=== PATIENT | female | born 1940 | race African-American/Black ===

== ENCOUNTER 2020-06-15 14:03 | Emergency (ER) | payer OTHER ==
[~2020-06-15] VITALS: Ht 162.6 cm; Wt 45.0 kg
[2020-06-15] MEDS ORDERED: SODIUM CHLORIDE 0.9% 1,000 ML IV ONE (14:30)
[2020-06-15 15:00] LABS: HEMATOCRIT. 37.9 % (36.0-48.0); HEMOGLOBIN. 12.5 g/dL (12.0-16.0); MEAN CORPUSCULAR HEMOGLOBIN 28.5 pg (28.0-32.0); MEAN CORPUSCULAR VOLUME 86.1 fL (81.0-99.0); MEAN PLATELET VOLUME 10.6 fl (7.4-10.4); PLATELET 193 x1000/uL (130-400); RED CELL DISTRIBUTION WIDTH 13.6 % (11.6-14.6)
[2020-06-15 15:02] LABS: CHLORIDE 110 mEq/L (98-107)
[2020-06-15 15:06] LABS: ETHANOL BLOOD < 10 mg/dL
[2020-06-15 15:08] LABS: PARTIAL THROMBOPLASTIN TIME 24.2 sec (23.4-31.0); PROTHROMBIN TIME 11.2 sec (9.6-11.0)
[2020-06-15 15:52] LABS: CLARITY URINE CLEAR (CLEAR); COLOR URINE YELLOW (YELLOW); KETONES URINE 1+ (NEGATIVE); LEUKOCYTE ESTERASE URINE TRACE (NEGATIVE); NITRITE URINE NEGATIVE (NEGATIVE); OCCULT BLOOD URINE NEGATIVE (NEGATIVE); PH URINE 5.5 (4.5-8.0); PROTEIN URINE NEGATIVE (NEGATIVE); SPECIFIC GRAVITY URINE 1.023 (1.005-1.030)
[2020-06-15 16:00] LABS: PLATELET ESTIMATE NORMAL
[2020-06-15] MEDS ORDERED: MORPHINE SULFATE 2 MG/ML CPJ (NOT FOR IM USE) IV ONE (16:00)
[2020-06-15 16:16] LABS: *BENZODIAZEPINES SCREEN URINE NEGATIVE (NEGATIVE); *COCAINE SCREEN URINE NEGATIVE (NEGATIVE)
[2020-06-15 16:17] LABS: *AMPHETAMINES SCREEN URINE NEGATIVE (NEGATIVE); *BARBITURATES SCREEN URINE NEGATIVE (NEGATIVE); OPIATES URINE SCREEN NEGATIVE (NEGATIVE); PHENCYCLIDINE URINE SCREEN NEGATIVE (NEGATIVE)
[2020-06-15 16:18] LABS: CANNABINOID URINE SCREEN NEGATIVE (NEGATIVE)
[2020-06-15 16:24] LABS: METHADONE URINE SCREEN NEGATIVE (NEGATIVE)
[2020-06-15] MEDS ORDERED: CEFTRIAXONE 1 G PREMIX 50 ML IV ONE (16:30)
[2020-06-15 23:07] VITALS: BP 121/57
== END 2020-06-15 23:48 | disposition short-term general hospital (02) ==
LOC: ER 14:19
DX: R41.82 Altered mental status, unspecified (principal); R10.0 Acute abdomen; N89.8 Other specified noninflammatory disorders of vagina; K44.9 Diaphragmatic hernia without obstruction or gangrene; K56.41 Fecal impaction; R53.1 Weakness; I10 Essential (primary) hypertension; G30.9 Alzheimer's disease, unspecified; F02.80 Dementia in other diseases classified elsewhere, unspecified severity, without behavioral disturbance, psychotic disturbance, mood disturbance, and anxiety
CPT/HCPCS: 36415; 70450; 71045; 74176; 80053; 80305; 80320; 81003; 82140; 83690; 83880; 84484; 85025; 85610; 85730; 86850; 86900; 86901; 87086; 93005; 96374; 96375; 99285; J0696; J2270; J7030; G0480